=== PATIENT | male | born 1975 | race Caucasian/White ===

== ENCOUNTER 2018-10-26 21:50 | Emergency (ER) | payer OTHER ==
[~2018-10-26] VITALS: Ht 182.9 cm; Wt 133.8 kg
[2018-10-26 21:54] VITALS: Ht 182.9 cm; Wt 133.8 kg
[2018-10-26 23:25] VITALS: BP 138/88
== END 2018-10-26 23:15 | disposition home or self-care (01) ==
LOC: ED 21:50
DX: J98.11 Atelectasis (principal)
CPT/HCPCS: J1885; J7030

== ENCOUNTER 2018-11-04 00:48 | Emergency (ER) | payer OTHER ==
[~2018-11-04] VITALS: Ht 182.9 cm; Wt 135.6 kg
[2018-11-04 00:53] VITALS: Ht 182.9 cm; Wt 135.6 kg
[2018-11-04 05:55] VITALS: BP 137/103
== END 2018-11-04 05:55 | disposition home or self-care (01) ==
LOC: ED 00:48
DX: J18.9 Pneumonia, unspecified organism (principal)